=== PATIENT | female | born 1960 | race Caucasian/White ===

== ENCOUNTER 2024-01-16 22:49 | Observation (INO) | payer OTHER ==
[~2024-01-16] VITALS: Ht 152.4 cm; Wt 69.9 kg
[~2024-01-16 22:49] MED LIST: ASPIRIN81 MG PO; ATORVASTATIN CA20 MG PO; B COMPLEX1 EACH PO; BIOTIN1 MG PO; CALCIUM500 MG PO; CENTRUM WOMEN1 EACH PO; DIM PO; LEVOTHYROXINE75 MCG PO; METFORMIN HCL500 M1 PO; NADOLOL40 MG PO; NEXIUM40 MG PO; PROGESTERONE200 MG PO; VITAMIN D3125 MCG PO; WARFARIN SODIUM2 MG PO; WARFARIN SODIUM3 MG PO; XYZAL5 MG PO
[2024-01-16 23:05] VITALS: PULSE 104; RESP 22; O2SAT 97
[2024-01-17] MEDS ORDERED: ONDANSETRON HCL INJ 2MG/ML 2ML 2 MG/ML VIAL IV PRN
[2024-01-17] MEDS: ASPIRIN 81 MG CHEW TAB PO ONE (00:02)
[2024-01-17 04:20] VITALS: BP 116/80; PULSE 83; RESP 18; TEMP 97.6; O2SAT 100
[2024-01-17] MEDS ORDERED: SUMATRIPTAN SUC25 MG PO (04:25)
[2024-01-17] MEDS ORDERED: OZEMPIC1 MG/0.71 SQ (04:25)
[2024-01-17] MEDS ORDERED: MINOXIDIL2.5 MG PO (04:25)
[2024-01-17] MEDS ORDERED: LEVOTHYROXINE50 MCG PO (04:25)
[2024-01-17] MEDS ORDERED: FUROSEMIDE20 MG PO (04:25)
[2024-01-17 04:38] VITALS: BP 116/80; PULSE 83; RESP 18; TEMP 97.6; O2SAT 100
[2024-01-17 06:45] LABS: CREATINE KINASE 289 IU/L (29-168)
[2024-01-17] MEDS ORDERED: DEXTROSE 50% SYRINGE 50 ML IV PRN (06:45)
[2024-01-17 06:54] LABS: TROPONIN I < 0.001 ng/mL (0-0.300)
[2024-01-17] MEDS: INSULIN REGULAR, HUMAN 100 UNIT/1 ML SQ SCH (07:30)
[2024-01-17 07:50] VITALS: BP 126/84; PULSE 98; RESP 17; TEMP 97.8; O2SAT 99
[2024-01-17 08:54] LABS: BASOPHILS % 0.5 % (0.0-1.0); EOSINOPHILS # (AUTO) 0.2 (0.0-0.4); EOSINOPHILS % 2.7 % (0.0-6.0); HEMATOCRIT 41.6 % (34.2-44.1); HEMOGLOBIN 15.2 g/dL (12.0-16.0); LYMPHOCYTES # (AUTO) 2.7 (1.0-3.2); LYMPHOCYTES % 42.3 % (18.0-39.1); MEAN CORPUSCULAR HEMOGLOBIN 33.1 pg (28-32); MEAN CORPUSCULAR HGB CONC 36.5 g/dL (31-35); MEAN CORPUSCULAR VOLUME 90.6 fL (81-99); MONOCYTES # (AUTO) 0.7 (0.2-0.8); MONOCYTES % 10.6 % (4.4-11.3); NEUTROPHILS # (AUTO) 2.8 (2.1-6.9); NEUTROPHILS % 43.7 % (38.7-80.0); PLATELET COUNT 261 x10e3/uL (140-360); RED BLOOD COUNT 4.59 x10e6/uL (3.6-5.1); RED CELL DISTRIBUTION WIDTH 12.5 % (11.7-14.4); WHITE BLOOD COUNT 6.41 x10e3/uL (4.8-10.8)
[2024-01-17] MEDS: ASPIRIN 325 MG TAB EC PO SCH (09:08)
[2024-01-17 09:16] VITALS: BP 126/84; PULSE 98; RESP 17; TEMP 97.8; O2SAT 99
[2024-01-17 09:34] LABS: INR 1.36; PROTHROMBIN TIME 17.6 seconds (11.9-14.5)
[2024-01-17 09:50] LABS: ALBUMIN 4.1 g/dL (3.5-5.0); ALBUMIN/GLOBULIN RATIO 1.5 (0.8-2.0); ANION GAP 17.8 mmol/L (8-16); BILIRUBIN,TOTAL 0.6 mg/dL (0.2-1.2); CALCIUM 9.8 mg/dL (8.4-10.2); CREATININE, SERUM 0.74 mg/dL (0.57-1.11); POTASSIUM 3.8 mmol/L (3.5-5.1); TOTAL PROTEIN 6.8 g/dL (6.5-8.1)
[2024-01-17 10:07] LABS: CHOL/HDL RATIO 3.5 (3.0-3.6)
[2024-01-17] MEDS ORDERED: FUROSEMIDE 20 MG TAB PO PRN (10:15)
[2024-01-17] MEDS: WARFARIN SOD 5 MG TAB PO ONE (10:24)
[2024-01-17] MEDS: ASPIRIN 81 MG ENTERIC COATED PO SCH (10:24)
[2024-01-17] MEDS: ENOXAPARIN INJ 80 MG/0.8 ML SYR SC SCH (10:25)
[2024-01-17 10:27] LABS: THYROID STIMULATING HORMONE 2.048 uIU/mL (0.350-4.940)
[2024-01-17] MEDS ORDERED: ACETAMINOPHEN 325 MG TAB PO PRN (10:30)
[2024-01-17 12:20] VITALS: BP 142/86; PULSE 101; RESP 18; TEMP 98; O2SAT 98
[2024-01-17 16:10] LABS: CREATINE KINASE 296 IU/L (29-168)
[2024-01-17 16:18] LABS: TROPONIN I < 0.001 ng/mL (0-0.300)
[2024-01-17 16:31] VITALS: BP 140/78; PULSE 100; RESP 17; TEMP 97.6; O2SAT 97
[2024-01-17] MEDS ORDERED: WARFARIN SODIUM5 MG PO (18:39)
[2024-01-17] MEDS ORDERED: ATORVASTATIN 40 MG TAB PO SCH (21:00)
[2024-01-18] MEDS ORDERED: LEVOTHYROXINE SODIUM 50 MCG TAB PO SCH (06:00)
[2024-01-18] MEDS ORDERED: PANTOPRAZOLE SOD 40 MG TABEC PO SCH (07:30)
[2024-01-18] MEDS ORDERED: SENNOSIDES 8.6 MG TAB PO SCH (09:00)
[2024-01-18] MEDS ORDERED: DOCUSATE SODIUM 100 MG CAP PO SCH (09:00)
[2024-01-18] MEDS ORDERED: WARFARIN SOD 5 MG TAB PO SCH (17:00)
== END 2024-01-17 19:40 | disposition home or self-care (01) ==
LOC: FSED 23:41 → ERHOLD 23:51 → MED/SURG 01-17 04:08
PROVIDERS: ADMIT Internal Medicine; ATTEND Internal Medicine
DX: R07.9 Chest pain, unspecified (principal); R79.1 Abnormal coagulation profile; R06.02 Shortness of breath; Z95.2 Presence of prosthetic heart valve; Z79.01 Long term (current) use of anticoagulants; I10 Essential (primary) hypertension; E78.2 Mixed hyperlipidemia; E11.9 Type 2 diabetes mellitus without complications; Z79.84 Long term (current) use of oral hypoglycemic drugs; Z79.85 Long-term (current) use of injectable non-insulin antidiabetic drugs; E03.9 Hypothyroidism, unspecified; K21.9 Gastro-esophageal reflux disease without esophagitis; E66.9 Obesity, unspecified; Z68.30 Body mass index [BMI] 30.0-30.9, adult; Z79.899 Other long term (current) drug therapy; Z79.82 Long term (current) use of aspirin
CPT/HCPCS: 36415; 71045; 78452; 80053; 80061; 82550; 82948; 83036; 83735; 84443; 84484; 85025; 85610; 87040; 93005; 93017; 93306; 94799; 99284; A9502; G0378 ×2